=== PATIENT | female | born 1955 | race Caucasian/White ===

== ENCOUNTER → 2016-07-15 | Outpatient (CLI) | payer MEDICARE ==
--- NOTE | 2016-07-15 12:52 | EKG REPORT ---
SEVERITY:- NORMAL ECG - SINUS RHYTHM : Confirmed by: Phi Contreras 15-Jul-2016 12:51:41
== END ==
LOC: OD 10:28
PROVIDERS: ATTEND Physician Assistant
DX: Z79.891 Long term (current) use of opiate analgesic (principal)
CPT/HCPCS: 93005; 36415; 93010; G0480; 80358

== ENCOUNTER → 2018-04-04 | Outpatient (CLI) | payer MEDICARE ==
--- NOTE | 2018-04-04 13:22 | EKG REPORT ---
SEVERITY:- BORDERLINE ECG - SINUS RHYTHM NONSPECIFIC ST-T CHANGES- INFERIOR LEADS : Confirmed by: Romie Galicia MD 04-Apr-2018 13:21:34
== END ==
LOC: OD 12:19
PROVIDERS: ATTEND Physician Assistant
DX: I49.9 Cardiac arrhythmia, unspecified (principal); Z79.891 Long term (current) use of opiate analgesic
CPT/HCPCS: 93005; 36415; 93010; G0480; 80358

== ENCOUNTER → 2019-03-28 | Outpatient (CLI) | payer MEDICARE | LOC: OD 10:31 | PROVIDERS: ATTEND Physician Assistant | DX: Z51.81 Encounter for therapeutic drug level monitoring (principal); Z79.891 Long term (current) use of opiate analgesic | CPT/HCPCS: 36415; G0480; 80358 ==

== ENCOUNTER → 2019-04-25 | Outpatient (CLI) | payer MEDICARE ==
--- NOTE | 2019-04-25 23:39 | EKG REPORT ---
SEVERITY:- BORDERLINE ECG - SINUS RHYTHM BORDERLINE T WAVE ABNORMALITIES : Confirmed by: Phi Contreras 25-Apr-2019 23:39:06
== END ==
LOC: OD 11:38
PROVIDERS: ATTEND Physician Assistant
DX: Z79.891 Long term (current) use of opiate analgesic (principal)
CPT/HCPCS: 93005; 93010